=== PATIENT | female | born 1930 | race Caucasian/White ===

== ENCOUNTER → 2017-03-26 | Outpatient (CLI) | payer MEDICARE, BC ==
--- NOTE | 2017-03-26 16:29 | MR ---
EXAMINATION TYPE: MR lumbar spine wo con DATE OF EXAM: 03/26/2017 3:41 PM COMPARISON: NONE HISTORY: LBP, BLE radic x 6 mos Multiplanar, MultiSpin echo imaging of the lumbar spine was performed. L1-L2: Moderate disc desiccation. Circumferential disc bulge without herniation, protrusion or centra l stenosis. 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 L2-L3: Moderate disc desiccation. Circumferential disc bulge without herniation, protrusion or centra l stenosis. 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 L3-L4: Severe disc desiccation with cyst is moderately severe circumferential disc bulge. Hypertrophy of the ligamentum flavum and facet joint arthropathy result in severe central stenosis. Moderate diana ateral foraminal encroachment right much greater than left. L4-L5: Severe disc desiccation. Circumferential disc bulge greatest posteriorly. Bilateral lateral re cess stenosis without central stenosis at this time. Severe facet joint arthropathy with moderate diana ateral foraminal encroachment. L5-S1: Moderate disc desiccation. Circumferential disc bulge without herniation, protrusion or centra l stenosis. 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 Lumbar segments are intact. No paraspinal masses are identified. Conus medullaris has a normal appe arance. Renal atrophic changes identified. IMPRESSION: 1. Multilevel degenerative disc disease as discussed. 2. 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 Bilateral lateral recess stenosis at L4-5.
== END | disposition home or self-care (01) ==
LOC: RADMRIMAIN 14:54
PROVIDERS: ATTEND Physical Medicine & Rehabilitation
DX: M51.16 Intervertebral disc disorders with radiculopathy, lumbar region (principal); M48.06 Spinal stenosis, lumbar region
CPT/HCPCS: 72148